=== PATIENT | female | born 1935 | race Caucasian/White ===

== ENCOUNTER 2017-05-24 22:12 | Emergency (ER) | payer OTHER ==
[~2017-05-24] VITALS: Ht 160 cm; Wt 58.0 kg
[~2017-05-24 22:12] MED LIST: CYCL1PAK PO; DIPH1TAB36 PO; OXYC1SOL5 PO; Z.0.WALKERFRONT
[2017-05-24 22:15] VITALS: BP 156/101; PULSE 98; RESP 16; TEMP 98.1; O2SAT 98
[2017-05-24 22:41] VITALS: BP 119/75; PULSE 98; RESP 18; O2SAT 97
[2017-05-24] MEDS ORDERED: SODIUM CHLORIDE 0.9% FLUSH 10 ML FLUSH IVF PRN (23:00)
[2017-05-24] MEDS ORDERED: LORazepam 2 MG/ML VIAL IV PUSH ONE (23:00)
[2017-05-24 23:10] LABS: AUTOMATED NEUTROPHIL # 4.1 TH/MM3 (1.8-7.7); BASOPHIL # 0.1 TH/MM3 (0-0.2); BASOPHIL % 0.7 % (0.0-2.0); EOSINOPHIL # 0.1 TH/MM3 (0-0.4); EOSINOPHIL % 1.2 % (0.0-4.0); HEMATOCRIT 38.2 % (35.0-46.0); HEMO FLAGS DIFF FINAL; LYMPH % 38.2 % (9.0-44.0); LYMPHOCYTE # 3.1 TH/MM3 (1.0-4.8); MEAN CELL VOLUME 87.7 FL (80.0-100.0); MEAN CORPUSCULAR HEMOGLOBIN 29.3 PG (27.0-34.0); MEAN CORPUSCULAR HGB CONC 33.4 % (32.0-36.0); MONO % 9.9 % (0.0-8.0); PLATELET COUNT 322 TH/MM3 (150-450); RED BLOOD COUNT 4.35 MIL/MM3 (4.00-5.30); RED CELL DISTRIBUTION WIDTH 13.4 % (11.6-17.2); WHITE BLOOD COUNT 8.2 TH/MM3 (4.0-11.0)
[2017-05-24 23:23] LABS: ANION GAP 8 MEQ/L (5-15); AST (GOT) 20 U/L (15-37); BICARBONATE 22.4 MEQ/L (21.0-32.0); BLOOD UREA NITROGEN 16 MG/DL (7-18); CHLORIDE 103 MEQ/L (98-107); GLOMERULAR FILTRATION RATE 80 ML/MIN (>89); POTASSIUM 3.4 MEQ/L (3.5-5.1); SODIUM (NA) 133 MEQ/L (136-145)
[2017-05-24 23:24] LABS: ALT (GPT) 15 U/L (10-53)
[2017-05-24 23:27] LABS: ALKALINE PHOSPHATASE 62 U/L (45-117); TOTAL BILIRUBIN ADULT 0.2 MG/DL (0.2-1.0)
[2017-05-24 23:37] LABS: CREATINE KINASE 48 U/L (26-192)
[2017-05-24 23:42] VITALS: RESP 18; O2SAT 97
--- NOTE | 2017-05-25 00:07 | RADRPT ---
EXAM DATE/TIME: 05/24/2017 23:25 [facility] COMPARISON: CT BRAIN W/O CONTRAST, July 05, 2016, 22:58. INDICATIONS : Altered mental status. RADIATION DOSE: 52.13 CTDIvol (mGy) MEDICAL HISTORY : Cardiovascular disease. Hypertension. Hernia, hiatal. SURGICAL HISTORY : Appendectomy. Hysterectomy.Back surgery. ENCOUNTER: Initial ACUITY: 1 day PAIN SCALE: 0/10 LOCATION: cranial TECHNIQUE: Multiple contiguous axial images were obtained of the head. Using automated exposure control and adj ustment of the mA and/or kV according to patient size, radiation dose was kept as low as reasonably a chievable to obtain optimal diagnostic quality images. DICOM format image data is available electro nically for review and comparison. FINDINGS: CEREBRUM: The ventricles are normal for age. Stable lacunar infarct right basal ganglia. No evidence of midlin e shift, mass lesion, hemorrhage or acute infarction. No extra-axial fluid collections are seen. POSTERIOR FOSSA: The cerebellum and brainstem are intact. The 4th ventricle is midline. The cerebellopontine angle i s unremarkable. EXTRACRANIAL: The visualized portion of the orbits is intact. SKULL: The calvaria is intact. No evidence of skull fracture. CONCLUSION: 1. No acute findings. Stable lacunar infarct right basal ganglia. Chronic white matter ischemic leiva es. Jr Pop MD on May 25, 2017 at 0:03 Board Certified Radiologist. This report was verified electronically.
[2017-05-25] MEDS ORDERED: LORA-392 PO (01:20)
--- NOTE | 2017-05-25 01:21 | PD ---
HPI Chief Complaint: Medical Clearance Time Seen by Provider: 22:35 Travel History International Travel<30 days: No Contact w/Intl Traveler<30days: No Traveled to known affect area: No History of Present Illness HPI Patient is an 81-year-old female who comes in complaining of spasms. She says this started about an hour ago. Per family, this happened about 10 years ago and she saw neurology and nothing was found to be wrong. They told her it was likely related to the surgery she's had in her neck and her muscles. She reports no pain. She did take Lyrica mistakenly this afternoon because of his dark and she did not see what she was taking. She does have a frontal headache , but this is a chronic issue for her. She has not had fever or chills. She denies any head trauma. She denies chest pain or shortness of breath. 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) Heart Rhythm Problems: No Cancer: No Cardiovascular Problems: Yes High Cholesterol: Yes Chemotherapy: No Cerebrovascular Accident: Yes Diabetes: No Diminished Hearing: Yes ([place]) Gastrointestinal Disorders: Yes Genitourinary: No Hiatal Hernia: Yes Hypertension: Yes Immune Disorder: No Musculoskeletal: Yes Neurologic: Yes (H/A JAWS AND ANTEROIR HEAD ALL TIME) Psychiatric: No Reproductive: Yes Respiratory: No Immunizations Current: Yes Migraines: Yes Radiation Therapy: No Thyroid Disease: Yes (HYPO) Tetanus Vaccination: < 5 Years Influenza Vaccination: Yes PNEUMOCCOCAL Vaccine (Year): 1 ?: Not Menopausal: Yes Past Surgical History Abdominal Surgery: No Appendectomy: Yes Cardiac Surgery: No Ear Surgery: No Endocrine Surgery: No Eye Surgery: Yes (CATARACTS REMOVED) Genitourinary Surgery: No Gynecologic Surgery: Yes (HYSTERECTOMY AGE 34) Hysterectomy: Yes Neurologic Surgery: Yes Oral Surgery: Yes (TEETH PULLED 2 YRS AGO) Thoracic Surgery: No Tonsillectomy: Yes Other Surgery: Yes Social History Alcohol Use: No Tobacco Use: No Substance Use: No Allergies-Medications (Allergen,Severity, Reaction): Coded Allergies: codeine (Unverified Adverse Reaction, Severe, Nausea/Vomiting, 05/24/17) "stomach problems" Reported Meds & Prescriptions Reported Meds & Active Scripts Active No Active Prescriptions or Reported Medications Review of Systems Except as stated in HPI: all other systems reviewed are Neg General / Constitutional: No: Fever, Chills Eyes: No: Blurred Vision HENT: Positive: Headaches Cardiovascular: No: Chest Pain or Discomfort Respiratory: No: Shortness of Breath Gastrointestinal: No: Nausea, Vomiting Musculoskeletal: No: Myalgias, Edema, Pain Skin: No Rash, No Change in Pigmentation Neurologic: No: Weakness, Dizziness Physical Exam Narrative GENERAL: Awake and alert, in no acute distress. SKIN: Focused skin assessment warm/dry. HEAD: Atraumatic. Normocephalic. EYES: Pupils equal and round. No scleral icterus. ENT: Mucous membranes pink and moist. NECK: Trachea midline. No JVD. CARDIOVASCULAR: Regular rate and rhythm. No murmur appreciated. RESPIRATORY: No accessory muscle use. Clear to auscultation. Breath sounds equal bilaterally. GASTROINTESTINAL: Abdomen soft, non-tender, nondistended. MUSCULOSKELETAL: No obvious deformities. No clubbing. No cyanosis. No edema. NEUROLOGICAL: Awake and alert. No obvious cranial nerve deficits. Motor grossly within normal limits. Normal speech. PSYCHIATRIC: Appropriate mood and affect; insight and judgment normal. Data Data Last Documented VS Vital Signs Date Time Temp Pulse Resp B/P (MAP) Pulse Ox O2 Delivery O2 Flow Rate FiO2 05/24/17 23:42 18 97 Room Air 05/24/17 22:41 98 05/24/17 22:15 98.1 Orders Orders Complete Blood Count With Diff (05/24/17 22:48) Electrocardiogram (05/24/17 ) Ct Brain W/O Iv Contrast(Rout) (05/24/17 ) Blood Glucose (05/24/17 22:48) Ecg Monitoring (05/24/17 22:48) Iv Access Insert/Monitor (05/24/17 22:48) Oximetry (05/24/17 22:48) Comprehensive Metabolic Panel (05/24/17 22:48) Sodium Chloride 0.9% Flush (Ns Flush) (05/24/17 23:00) Ua Includes Microscopic (05/24/17 22:48) Creatine Kinase (Cpk) (05/24/17 22:48) Lorazepam Inj (Ativan Inj) (05/24/17 23:00) Labs Laboratory Tests Test 05/24/17 22:57 White Blood Count 8.2 TH/MM3 Red Blood Count 4.35 MIL/MM3 Hemoglobin 12.8 GM/DL Hematocrit 38.2 % Mean Corpuscular Volume 87.7 FL Mean Corpuscular Hemoglobin 29.3 PG Mean Corpuscular Hemoglobin Concent 33.4 % Red Cell Distribution Width 13.4 % Platelet Count 322 TH/MM3 Mean Platelet Volume 7.4 FL Neutrophils (%) (Auto) 50.0 % Lymphocytes (%) (Auto) 38.2 % Monocytes (%) (Auto) 9.9 % Eosinophils (%) (Auto) 1.2 % Basophils (%) (Auto) 0.7 % Neutrophils # (Auto) 4.1 TH/MM3 Lymphocytes # (Auto) 3.1 TH/MM3 Monocytes # (Auto) 0.8 TH/MM3 Eosinophils # (Auto) 0.1 TH/MM3 Basophils # (Auto) 0.1 TH/MM3 CBC Comment DIFF FINAL Differential Comment Blood Urea Nitrogen 16 MG/DL Creatinine 0.70 MG/DL Random Glucose 97 MG/DL Total Protein 6.5 GM/DL Albumin 3.4 GM/DL Calcium Level 8.4 MG/DL Alkaline Phosphatase 62 U/L Aspartate Amino Transf (AST/SGOT) 20 U/L Alanine Aminotransferase (ALT/SGPT) 15 U/L Total Bilirubin 0.2 MG/DL Sodium Level 133 MEQ/L Potassium Level 3.4 MEQ/L Chloride Level 103 MEQ/L Carbon Dioxide Level 22.4 MEQ/L Anion Gap 8 MEQ/L Estimat Glomerular Filtration Rate 80 ML/MIN Total Creatine Kinase 48 U/L MDM Medical Decision Making Medical Screen Exam Complete: Yes Emergency Medical Condition: Yes Medical Record Reviewed: Yes Interpretation(s) ECG shows atrial pacemaker, left anterior fascicular block. Differential Diagnosis Electrolyte abnormality versus seizure versus muscle spasm Narrative Course Patient is an 81-year-old female who comes in complaining of spasms. Exam shows no neurologic abnormality. IV established, labs sent. Labs show no acute abnormalities. CT head performed shows no acute abnormalities. Patient given a small dose of Ativan with resolution of her symptoms. She'll be discharged with a prescription for 3 pills of Ativan. She is advised follow-up with neurology and her doctor. Advised to return to the ED as needed for any worsening symptoms. She and her family are comfortable with this plan. Diagnosis Primary Impression: Spasm Patient Instructions: General Instructions, Muscle Spasm (ED) Additional Instructions: Follow-up with your primary care doctor. Follow up with neurology. He Taking Ativan as it may make you drowsy and these pills are very addictive. Return to the ED as needed for any worsening symptoms. Scripts Lorazepam (Ativan) 0.5 Mg Tab 0.5 MG PO DAILY Y for ANXIETY AND/OR AGITATION, #3 TAB 0 Refills Prov: Bethany De Luna MD 05/25/17 Disposition: 01 DISCHARGE HOME Condition: Stable Bethany De Luna MD May 25, 2017 01:20
--- NOTE | 2017-05-25 21:26 | EKG ---
Date Performed: 05/24/2017 Time Performed: 23:48:52 PTAGE: 81 years EKG: Sinus rhythm INCOMPLETE RIGHT BUNDLE BRANCH BLOCK LEFT ANTERIOR FASCICULAR BLOCK MINIMAL VOLTAGE CRITERIA FOR LVH , CONSIDER NORMAL VARIANT SEPTAL MYOCARDIAL INFARCTION ABNORMAL ECG PREVIOUS TRACING : 04/29/2014 01.47 Compared to prior tracing no significant change DOCTOR: Jarrett Duran Interpretating Date/Time 05/25/2017 21:25:26
== END 2017-05-25 01:43 | disposition home or self-care (01) ==
LOC: NEPE 22:12
DX: R25.2 Cramp and spasm (principal); I45.2 Bifascicular block; R94.31 Abnormal electrocardiogram [ECG] [EKG]; R51 Headache; M19.90 Unspecified osteoarthritis, unspecified site; I10 Essential (primary) hypertension; E03.9 Hypothyroidism, unspecified; E78.00 Pure hypercholesterolemia, unspecified; Z86.73 Personal history of transient ischemic attack (TIA), and cerebral infarction without residual deficits
CPT/HCPCS: 70450; 80053; 82550; 85025; 93005; 96374; 99285; J2060

== ENCOUNTER 2018-01-18 22:19 | Inpatient (IN) | payer OTHER, MEDICARE ==
[~2018-01-18] VITALS: Ht 160 cm; Wt 63.0 kg
[~2018-01-18 22:19] MED LIST changes: -CYCL1PAK PO; -DIPH1TAB36 PO; +LORA-392 PO; -OXYC1SOL5 PO; -Z.0.WALKERFRONT
[2018-01-18 22:27] VITALS: BP 182/90; RESP 18; TEMP 98.1
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
[2018-01-18 23:12] LABS: BASOPHIL # 0.1 TH/MM3 (0-0.2); BASOPHIL % 0.7 % (0.0-2.0); EOSINOPHIL # 0.1 TH/MM3 (0-0.4); EOSINOPHIL % 0.6 % (0.0-4.0); HEMATOCRIT 38.5 % (35.0-46.0); HEMOGLOBIN 13.3 GM/DL (11.6-15.3); LYMPH % 20.4 % (9.0-44.0); LYMPHOCYTE # 2.1 TH/MM3 (1.0-4.8); MEAN CELL VOLUME 85.3 FL (80.0-100.0); MEAN CORPUSCULAR HEMOGLOBIN 29.5 PG (27.0-34.0); MEAN CORPUSCULAR HGB CONC 34.6 % (32.0-36.0); MEAN PLATELET VOLUME 7.5 FL (7.0-11.0); MONO % 9.2 % (0.0-8.0); MONOCYTE # 0.9 TH/MM3 (0-0.9); NEUT % 69.1 % (16.0-70.0); PLATELET COUNT 295 TH/MM3 (150-450); RED BLOOD COUNT 4.51 MIL/MM3 (4.00-5.30); RED CELL DISTRIBUTION WIDTH 13.5 % (11.6-17.2); WHITE BLOOD COUNT 10.1 TH/MM3 (4.0-11.0)
[2018-01-18 23:20] LABS: BILIRUBIN, URINE NEG (NEG); BLOOD, URINE NEG (NEG); GLUCOSE,URINE NEG (NEG); HYALINE CAST, URINE 3 /lpf (RARE); KETONE, URINE NEG (NEG); MUCUS URINE FEW /lpf (OCC); NITRITE,URINE NEG (NEG); PH, URINE 6.5 (5.0-8.5); RENAL EPITHELIAL CELLS <1 /hpf; SQUAMOUS EPITHELIAL CELL URINE 2 /hpf (0-5); TRANSITIONAL EPI CELLS, URINE <1 /hpf; URINE COLOR YELLOW (YELLW/STRAW); URINE LEUKOCYTE ESTERASE NEG (NEG)
--- NOTE | 2018-01-18 23:26 | RADRPT ---
EXAM DATE/TIME: 01/18/2018 23:02 [facility] COMPARISON: CT BRAIN W/O CONTRAST, May 24, 2017, 23:25. INDICATIONS : Altered mental status. RADIATION DOSE: 56.35 CTDIvol (mGy) MEDICAL HISTORY : Hypertension. Cerebrovascular disease. SURGICAL HISTORY : None. ENCOUNTER: Initial ACUITY: 1 day PAIN SCALE: 0/10 LOCATION: cranial TECHNIQUE: Multiple contiguous axial images were obtained of the head. Using automated exposure control and adj ustment of the mA and/or kV according to patient size, radiation dose was kept as low as reasonably a chievable to obtain optimal diagnostic quality images. DICOM format image data is available electro nically for review and comparison. FINDINGS: CEREBRUM: The ventricles are normal for age. No evidence of midline shift, mass lesion, hemorrhage or acute in farction. No extra-axial fluid collections are seen. Atrophy and chronic white matter changes are ag ain noted. There is an old right basal ganglia lacunar infarct again seen. POSTERIOR FOSSA: The cerebellum and brainstem are intact. The 4th ventricle is midline. The cerebellopontine angle i s unremarkable. EXTRACRANIAL: The visualized portion of the orbits is intact. SKULL: The calvaria is intact. No evidence of skull fracture. CONCLUSION: No acute intracranial abnormality. Atrophy, chronic white matter changes and old right basal ganglia lacunar infarct again seen. Reji Diego MD on January 18, 2018 at 23:23 Board Certified Radiologist. This report was verified electronically.
[2018-01-18 23:28] LABS: ALBUMIN 3.5 GM/DL (3.4-5.0); ALT (GPT) 20 U/L (10-53); AST (GOT) 17 U/L (15-37); BICARBONATE 26.4 MEQ/L (21.0-32.0); BLOOD UREA NITROGEN 17 MG/DL (7-18); CALCIUM 8.6 MG/DL (8.5-10.1); CHLORIDE 101 MEQ/L (98-107); CREATININE 0.69 MG/DL (0.50-1.00); GLOMERULAR FILTRATION RATE 81 ML/MIN (>89); GLUCOSE,RANDOM 96 MG/DL (74-106); SODIUM (NA) 136 MEQ/L (136-145)
[2018-01-18 23:38] LABS: ALKALINE PHOSPHATASE 74 U/L (45-117); TOTAL BILIRUBIN ADULT 0.2 MG/DL (0.2-1.0); TOTAL PROTEIN 7.1 GM/DL (6.4-8.2)
[2018-01-18 23:43] LABS: ACETAMINOPHEN LESS THAN 2.0 MCG/ML (10.0-30.0)
[2018-01-19 10:00] VITALS: BP 139/67; PULSE 67; RESP 19; O2SAT 96
[2018-01-19] MEDS ORDERED: ALUMINUM/MAGNESIUM/SIMETH 30 ML CUP PO PRN (11:00)
[2018-01-19] MEDS ORDERED: LORazepam 2 MG/ML VIAL IM PRN ×2 (11:00)
[2018-01-19] MEDS ORDERED: LORazepam 1 MG TAB PO PRN (11:00)
[2018-01-19] MEDS ORDERED: NICOTINE 21 MG/24 HR PATCH T-DERMAL SCH (11:00)
[2018-01-19] MEDS ORDERED: MAGNESIUM HYDROXIDE SUSP 30 ML CUP PO PRN (11:00)
[2018-01-19] MEDS ORDERED: LORazepam 0.5 MG TAB PO PRN (11:00)
[2018-01-19 12:47] VITALS: BP 140/90; PULSE 75; RESP 19; O2SAT 95
[2018-01-19 13:00] VITALS: BP 129/70; PULSE 71; RESP 17; TEMP 98.4; O2SAT 95
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
[2018-01-19 18:54] VITALS: BP 135/63; PULSE 76; RESP 18; TEMP 98.2; O2SAT 95
[2018-01-19] MEDS: ACETAMINOPHEN 325 MG TAB PO PRN (22:27)
[2018-01-20] MEDS: ACETAMINOPHEN 325 MG TAB PO PRN ×2 (02:56→11:41)
[2018-01-20 06:00] VITALS: BP 127/60; PULSE 61; RESP 16; TEMP 97.8; O2SAT 96
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
[2018-01-20] MEDS ORDERED: ONDANSETRON ODT 4 MG TAB PO PRN (13:00)
[2018-01-20 14:11] LABS: BICARBONATE 25.1 MEQ/L (21.0-32.0); BLOOD UREA NITROGEN 12 MG/DL (7-18); CALCIUM 8.4 MG/DL (8.5-10.1); CHLORIDE 99 MEQ/L (98-107); CHOLESTEROL 243 MG/DL (120-200); GLOMERULAR FILTRATION RATE 95 ML/MIN (>89); GLUCOSE,RANDOM 106 MG/DL (74-106); SODIUM (NA) 133 MEQ/L (136-145)
[2018-01-20 14:13] LABS: CHOLESTEROL/ HDL RATIO 2.69 RATIO; HDL CHOLESTEROL 90.3 MG/DL (40.0-60.0); LDL CHOLESTEROL 135 MG/DL (0-99); TRIGLYCERIDES 88 MG/DL (42-150)
[2018-01-20 14:21] LABS: FREE T3 1.93 PG/ML (2.18-3.98); FREE T4 0.95 NG/DL (0.76-1.46)
[2018-01-20] MEDS ORDERED: cloNIDine HCL 0.1 MG TAB PO PRN (16:30)
--- NOTE | 2018-01-20 16:36 | PD.CONS ---
HPI Service [facility] Hospitalists Consult Requested By Psychiatric team Reason for Consult Medical management Primary Care Physician Unknown Diagnoses: History of Present Illness This is a 82-year-old female with a past medical history significant for hypertension, dyslipidemia, chronic headaches, hard of hearing, osteoarthritis, GERD, hypothyroidism and dementia who was admitted to inpatient psychiatry under Guadarrama act due to her threatening herself and others. Hospitalist services have been consulted for medical management. Patient seen and examined. Patient complains of frontal headache and slight nausea today. She does admit that she has frequent headaches. She denies any complaints of neck pain. She denies any complaints of vision changes or dizziness. She denies any fever chills. She denies any chest pain or shortness of breath. She denies any vomiting or abdominal pain. She states she is urinating without any difficulties and denies any diarrhea or constipation. Discussed with nursing staff, no acute issues noted. Review of Systems Except as stated in HPI: all other systems reviewed are Neg Past Family Social History Allergies: Coded Allergies: codeine (Unverified Adverse Reaction, Severe, Nausea/Vomiting, 05/24/17) "stomach problems" Past Medical History Hypertension Dyslipidemia Hx of CVA Hypothyroidism Chronic migraine headaches GERD Hard of hearing Dementia Osteoarthritis History of C6 left pedicle fracture and endplate fracture 2016 Past Surgical History Appendectomy Cataract surgery Hysterectomy Tonsillectomy History of C4 6 anterior cervical fusion Reported Medications Ativan (Lorazepam) 0.5 Mg Tab 0.5 Mg PO DAILY PRN Active Ordered Medications Current Medications Medications (Trade) Dose Ordered Sig/Tim Route Start Time Stop Time Status Last Admin (Ativan) 1 mg Q6H PRN PO 01/19/18 11:00 (Ativan Inj) 1 mg Q6H PRN IM 01/19/18 11:00 (Ativan) 0.5 mg Q12H PRN PO 01/19/18 11:00 (Ativan Inj) 0.5 mg Q12H PRN IM 01/19/18 11:00 (Tylenol) 650 mg Q4H PRN PO 01/19/18 11:00 01/20/18 11:41 (Milk Of Magnesia Liq) 30 ml DAILY PRN PO 01/19/18 11:00 (Mag-Al Plus Susp Liq) 30 ml Q6H PRN PO 01/19/18 11:00 (Zofran Odt) 4 mg Q6H PRN PO 01/20/18 13:00 Family History Reviewed with patient, she is unsure of her family's medical history Social History She denies any tobacco use, alcohol consumption or illicit drug use Physical Exam Vital Signs Vital Signs Date Time Temp Pulse Resp B/P (MAP) Pulse Ox O2 Delivery O2 Flow Rate FiO2 01/20/18 06:00 97.8 61 16 127/60 (82) 96 01/19/18 18:54 98.2 76 18 135/63 (87) 95 Physical Exam GENERAL: This is a well-nourished, well-developed elderly female patient, in no apparent distress. Awake and alert. SKIN: No rashes, ecchymoses or lesions. Cool and dry. HEAD: Atraumatic. Normocephalic. No temporal or scalp tenderness. EYES: Pupils equal round and reactive. Extraocular motions intact. No scleral icterus. No injection or drainage. ENT: Nose without bleeding or purulent drainage. Throat without erythema, tonsillar hypertrophy or exudate. Uvula midline. Airway patent. NECK: Trachea midline. No JVD . Supple, nontender, no meningeal signs. CARDIOVASCULAR: Regular rate and rhythm without murmurs, gallops, or rubs. RESPIRATORY: Clear to auscultation. Breath sounds equal bilaterally. No wheezes , rales, or rhonchi. GASTROINTESTINAL: Abdomen soft, non-tender, nondistended. No hepato-splenomegaly , or palpable masses. No guarding. MUSCULOSKELETAL: Extremities without clubbing, cyanosis, or edema. No joint tenderness, effusion, or edema noted. No calf tenderness. Negative Homans sign bilaterally. NEUROLOGICAL: Awake and alert. Oriented to self and place, disoriented to time. Cranial nerves II through XII grossly intact. Motor and sensory grossly within normal limits. No focal neurologic findings appreciated. Normal speech. Laboratory Laboratory Tests Test 01/20/18 13:25 01/20/18 13:39 Free Thyroxine 0.95 Free Triiodothyronine (T3) pg/dL 1.93 Blood Urea Nitrogen 12 Creatinine 0.60 Random Glucose 106 Calcium Level 8.4 Sodium Level 133 Potassium Level 3.9 Chloride Level 99 Carbon Dioxide Level 25.1 Anion Gap 9 Estimat Glomerular Filtration Rate 95 Triglycerides Level 88 Cholesterol Level 243 LDL Cholesterol 135 HDL Cholesterol 90.3 Cholesterol/HDL Ratio 2.69 Result Diagram: 01/18/18 2300 01/20/18 1339 Imaging Last Impressions Head CT 01/18/18 0000 Signed Impressions: Service Date/Time: Thursday, January 18, 2018 23:02 - CONCLUSION: No acute intracranial abnormality. Atrophy, chronic white matter changes and old right basal ganglia lacunar infarct again seen. Reji Diego MD Assessment and Plan Assessment and Plan 82-year-old female with a past medical history significant for hypertension, dyslipidemia, chronic headaches, hard of hearing, osteoarthritis, GERD, hypothyroidism and dementia who was admitted to inpatient psychiatry under Guadarrama act due to her threatening herself and others. Hospitalist services have been consulted for medical management. Dementia with behavioral disturbance -Management per psychiatric team Chronic headaches/migraines CT head shows no acute intracranial abnormality, chronic white matter changes and old right basal ganglia lacunar infarct -Trial of Fioricet Hyponatremia, mild Na 133 -encourage fluid intake -monitor Nausea, likely secondary to hx of chronic headaches/migraines LFTs WNL No abdominal pain on exam -Zofran prn -monitor Poor po intake, suspect secondary to nausea -consult Mill Tender Second Operator -add Ensure with meals Hypertension, well controlled at present, not on any meds -We will resume patient's blood pressure medication once medication reconciliation completed Hx of hypothyroidism TSH mildly elevated at 5.420 Normal free T4 No thyroid replacement medication list and medication reconciliation. Requested nursing staff to complete medication reconciliation will resume thyroid replacement at current home dose -Patient should follow-up with her PCP as an outpatient have TSH rechecked in 6-8 weeks Patient with other chronic medical conditions including hypertension, dyslipidemia, osteoarthritis and GERD -only medication listed in patient's med rec is Ativan. Request nursing staff to update medication reconciliation and will resume patient's home meds once completed. DVT prophylaxis -Patient is ambulatory Thank you very kindly for this consultation. We will continue to follow patient along with you. Discussed Condition With patient, nursing staff Xuan Omer January 20, 2018 16:36
[2018-01-20 17:09] LABS: HEMOGLOBIN A1C 5.5 % (4.3-6.0)
[2018-01-20 17:31] VITALS: BP 137/73; PULSE 97; RESP 16; TEMP 97; O2SAT 96
[2018-01-20] MEDS ORDERED: ACETAMIN 325 MG/BUTALBITAL 50 MG/CAFFEINE 40 MG TAB PO ONE (18:00)
[2018-01-20 19:59] LABS: BILIRUBIN, URINE NEG (NEG); BLOOD, URINE SMALL (NEG); GLUCOSE,URINE NEG (NEG); KETONE, URINE NEG (NEG); NITRITE,URINE NEG (NEG); SQUAMOUS EPITHELIAL CELL URINE 6 /hpf (0-5); URINE COLOR LIGHT-YELLOW (YELLW/STRAW); URINE LEUKOCYTE ESTERASE NEG (NEG)
[2018-01-20] MEDS: FAMOTIDINE 20 MG TAB PO SCH (20:51)
[2018-01-21 06:00] VITALS: BP 149/79; PULSE 63; RESP 16; TEMP 97.6; O2SAT 97
[2018-01-21] MEDS: FAMOTIDINE 20 MG TAB PO SCH ×2 (09:11→20:55)
[2018-01-21] MEDS ORDERED: ACETAMIN 325 MG/BUTALBITAL 50 MG/CAFFEINE 40 MG TAB PO PRN (12:30)
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
--- NOTE | 2018-01-21 16:02 | HHI.PYPN ---
Subjective Remarks Patient was seen and case discussed with nursing. Patient is hard of hearing which limits the interview. She has been under good behavior. She is eating and showering. She is alert and oriented 1. Compliant with her medications Mental Status Examination Appearance: Appropriate Consciousness: Alert Orientation: Person Motor Activity: Normal gait Speech: Unremarkable Language: Adequate Fund of Knowledge: Inadequate Attention and Concentration: Adequate Memory: Impaired Mood: Appropriate Affect: Appropriate Thought Process & Associations: Intact Thought Content: Appropriate Hallucination Type: None Delusion Type: None Suicidal Ideation: No Suicidal Plan: No Suicidal Intention: No Homicidal Ideation: No Homicidal Plan: No Homicidal Intention: No Insight: Poor Judgment: Impulsive Results Labs Test 01/20/18 18:50 Urine Color LIGHT-YELLOW Urine Turbidity CLEAR Urine pH 7.0 Urine Specific [place]man 1.008 Urine Protein NEG mg/dL Urine Glucose (UA) NEG mg/dL Urine Ketones NEG mg/dL Urine Occult Blood SMALL Urine Nitrite NEG Urine Bilirubin NEG Urine Urobilinogen LESS THAN 2.0 MG/DL Urine Leukocyte Esterase NEG Urine RBC 2 /hpf Urine WBC LESS THAN 1 /hpf Urine Squamous Epithelial Cells 6 /hpf Microscopic Urinalysis Comment CULT NOT INDICATED Vitals/IOs Vital Signs Date Time Temp Pulse Resp B/P (MAP) Pulse Ox O2 Delivery O2 Flow Rate FiO2 01/21/18 06:00 97.6 63 16 149/79 (102) 97 01/19/18 12:47 Room Air Intake and Output 01/21/18 01/21/18 01/22/18 08:00 16:00 00:00 Intake Total 240 ml 120 ml Balance 240 ml 120 ml Assessment & Plan Problem List: (1) Dementia with behavioral disturbance ICD Codes: F03.91 - Unspecified dementia with behavioral disturbance Assessment & Plan Continue current treatment plan Justification for Cont. Inpt. Patient would decompensate in a less restrictive setting Sammy Brand DO January 21, 2018 16:02
[2018-01-21 16:30] VITALS: BP 132/61; PULSE 71; RESP 16; TEMP 97.6; O2SAT 97
[2018-01-22 06:16] VITALS: BP 131/64; PULSE 93; RESP 18; TEMP 97.9; O2SAT 94
[2018-01-22] MEDS: FAMOTIDINE 20 MG TAB PO SCH ×2 (08:28→20:35)
--- NOTE | 2018-01-22 15:58 | HHI.PYPN ---
Subjective Remarks Patient was seen and case discussed with nursing. Patient is alert and oriented 2. Pleasant and cooperative with exam. Compliant with medications. Behaving well on the unit. Bright and cheerful during the interview Mental Status Examination Appearance: Appropriate Consciousness: Alert Orientation: Person, Place Motor Activity: Normal gait Speech: Unremarkable Language: Adequate Fund of Knowledge: Inadequate Attention and Concentration: Adequate Memory: Impaired Mood: Appropriate Affect: Appropriate Thought Process & Associations: Intact Thought Content: Appropriate Hallucination Type: None Delusion Type: None Suicidal Ideation: No Suicidal Plan: No Suicidal Intention: No Homicidal Ideation: No Homicidal Plan: No Homicidal Intention: No Insight: Poor Judgment: Impulsive Results Labs Test 01/22/18 06:45 Sodium Level 135 MEQ/L Vitals/IOs Vital Signs Date Time Temp Pulse Resp B/P (MAP) Pulse Ox O2 Delivery O2 Flow Rate FiO2 01/22/18 06:16 97.9 93 18 131/64 (86) 94 01/19/18 12:47 Room Air Assessment & Plan Problem List: (1) Dementia with behavioral disturbance ICD Codes: F03.91 - Unspecified dementia with behavioral disturbance Assessment & Plan Continue current treatment plan Justification for Cont. Inpt. Patient would decompensate in a less restrictive setting Sammy Brand DO January 22, 2018 15:58
[2018-01-22 18:00] VITALS: BP 149/73; PULSE 80; RESP 18; TEMP 97.9; O2SAT 100
[2018-01-23] MEDS: ACETAMINOPHEN 325 MG TAB PO PRN (05:18)
[2018-01-23 05:30] VITALS: BP 166/77; PULSE 67; RESP 15; TEMP 98; O2SAT 98
[2018-01-23] MEDS: FAMOTIDINE 20 MG TAB PO SCH (09:11)
[2018-01-23] MEDS ORDERED: FAMO20TA2 PO (11:16)
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
== END 2018-01-23 14:55 | disposition home or self-care (01) | DRG 884 ==
LOC: NEPD 22:19 → NEDA 01-19 10:56 → H4EA 01-19 12:55
PROVIDERS: ADMIT Student in an Organized Health Care Education/Training Program; ATTEND Student in an Organized Health Care Education/Training Program
DX: F03.91 Unspecified dementia, unspecified severity, with behavioral disturbance (principal); E87.1 Hypo-osmolality and hyponatremia; I10 Essential (primary) hypertension; G43.909 Migraine, unspecified, not intractable, without status migrainosus; M19.90 Unspecified osteoarthritis, unspecified site; K21.9 Gastro-esophageal reflux disease without esophagitis; H91.90 Unspecified hearing loss, unspecified ear; E78.5 Hyperlipidemia, unspecified; E03.9 Hypothyroidism, unspecified; Z86.73 Personal history of transient ischemic attack (TIA), and cerebral infarction without residual deficits; R11.0 Nausea
CPT/HCPCS: 70450; 80048; 80053; 80061; 80307; 81001; 83036; 84295; 84439; 84443; 84481; 85025

== ENCOUNTER 2018-02-20 15:45 | Emergency (ER) | payer MEDICARE, OTHER ==
[~2018-02-20] VITALS: Ht 162.6 cm; Wt 55.0 kg
[~2018-02-20 15:45] MED LIST changes: +FAMO20TA2 PO; -LORA-392 PO
[2018-02-20 16:30] VITALS: BP 114/60; PULSE 64; RESP 16; TEMP 97.8
--- NOTE | 2018-02-20 17:39 | PD ---
HPI Chief Complaint: Fall Time Seen by Provider: 17:18 Travel History International Travel<30 days: No Contact w/Intl Traveler<30days: No Traveled to known affect area: No History of Present Illness HPI 82 yo female that presents to the ED for evaluation of fall. Patient herself is not a good historian. She does have a history of dementia. Apparently per report son saw her on the floor. She did complain of feeling nauseous before this happen. Currently she denies any symptoms and wants to go home. per ED nurse report she did complain of pain to the back of the head. Denies any complains. History limited because of dementia. Per report her BP was low. 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) Anxiety: Yes Depression: Yes Heart Rhythm Problems: No Cancer: No Cardiovascular Problems: Yes High Cholesterol: Yes Chemotherapy: No Cerebrovascular Accident: Yes Diabetes: No Diminished Hearing: Yes ([place] Endocrine: Yes Gastrointestinal Disorders: Yes Genitourinary: No Hiatal Hernia: Yes Hypertension: Yes Immune Disorder: No Musculoskeletal: Yes Neurologic: Yes (H/A JAWS AND ANTEROIR HEAD ALL TIME) Psychiatric: Yes Reproductive: Yes Respiratory: No Immunizations Current: Yes Migraines: Yes Radiation Therapy: No Thyroid Disease: Yes (HYPO) PNEUMOCCOCAL Vaccine (Year): 1 Menopausal: Yes Past Surgical History Abdominal Surgery: No Appendectomy: Yes Cardiac Surgery: No Ear Surgery: No Endocrine Surgery: No Eye Surgery: Yes (CATARACT REMOVAL) Genitourinary Surgery: No Gynecologic Surgery: Yes (HYSTERECTOMY AGE 34) Hysterectomy: Yes Neurologic Surgery: Yes Oral Surgery: Yes (TEETH PULLED 2 YRS AGO) Thoracic Surgery: No Tonsillectomy: Yes Other Surgery: Yes Social History Alcohol Use: No Tobacco Use: No Substance Use: No Allergies-Medications (Allergen,Severity, Reaction): Coded Allergies: codeine (Unverified Adverse Reaction, Severe, Nausea/Vomiting, 05/24/17) "stomach problems" Reported Meds & Prescriptions Reported Meds & Active Scripts Active Famotidine 20 Mg Tab 20 Mg PO BID 30 Days Review of Systems ROS Limitations: Poor Historian Except as stated in HPI: all other systems reviewed are Neg Physical Exam Exam Limitations: Poor Historian Narrative GENERAL: SKIN: Warm and dry. HEAD: Atraumatic. Normocephalic. EYES: Pupils equal and round. No scleral icterus. No injection or drainage. ENT: No nasal bleeding or discharge. Mucous membranes pink and moist. Tongue is midline. No uvula deviation. NECK: Trachea midline. No JVD. CARDIOVASCULAR: Regular rate and rhythm. No S3, S4. RESPIRATORY: No accessory muscle use. Clear to auscultation. Breath sounds equal bilaterally. GASTROINTESTINAL: Abdomen soft, non-tender, nondistended. Hepatic and splenic margins not palpable. MUSCULOSKELETAL: Extremities without clubbing, cyanosis, or edema. No obvious deformities. Full ROM of the upper and lower extremities bilaterally. 2+ pulses. NEUROLOGICAL: Awake and alert. No obvious cranial nerve deficits. Motor grossly within normal limits. Five out of 5 muscle strength in the arms and legs. Normal speech. PSYCHIATRIC: Appropriate mood and affect; insight and judgment normal. Data Data Last Documented VS Vital Signs Date Time Temp Pulse Resp B/P (MAP) Pulse Ox O2 Delivery O2 Flow Rate FiO2 02/20/18 16:30 97.8 64 16 114/60 (78) Orders Orders Electrocardiogram (02/20/18 17:27) Complete Blood Count With Diff (02/20/18 17:27) Comprehensive Metabolic Panel (02/20/18 17:27) Ckmb (Isoenzyme) Profile (02/20/18 17:27) Troponin I (02/20/18 17:27) Urinalysis - C+S If Indicated (02/20/18 17:27) Magnesium (Mg) (02/20/18 17:27) Thyroid Stimulating Hormone (02/20/18 17:27) Chest, Single Ap (02/20/18 17:27) Ct Brain W/O Iv Contrast(Rout) (02/20/18 17:27) Iv Access Insert/Monitor (02/20/18 17:27) Ecg Monitoring (02/20/18 17:27) Oximetry (02/20/18 17:27) Orthostatic Vital Signs (02/20/18 17:27) MDM Medical Decision Making Medical Screen Exam Complete: Yes Emergency Medical Condition: Yes Medical Record Reviewed: Yes Differential Diagnosis fall vs dementia vs head injury vs AMS vs fracture vs UTI vs abdominal pain vs syncope Narrative Course 82 yo female here for evaluation of fall. Properly examined and found to have signs of possible fall. Hard to obtain history secondary to dementia. patient not reliable historian. Will do imaging and labs. Patient will be signed out to incoming provider pending disposition and plan. Jer Feliz Feb 20, 2018 17:39
--- NOTE | 2018-02-20 17:59 | RADRPT ---
EXAM DATE: 02/20/2018 5:56 PM EDT AGE/SEX: 82 years / Female INDICATIONS: Syncope. CLINICAL DATA: This is the patient's initial encounter. Patient reports that signs and symptoms have been present for 1 day and indicates a pain score of Nonresponsive. MEDICAL/SURGICAL HISTORY: Non-responsive. Non-responsive. COMPARISON: No prior exams available for comparison. FINDINGS: The lungs are clear without infiltrate, nodule, or mass. There is no appreciable pleural effusion for technique. Heart and mediastinum are unremarkable. CONCLUSION: No acute cardiopulmonary disease. Electronically signed by: Rafia Vides MD 02/20/2018 5:58 PM EDT
--- NOTE | 2018-02-20 18:03 | RADRPT ---
EXAM DATE: 02/20/2018 5:55 PM EDT AGE/SEX: 82 years / Female INDICATIONS: Altered mental status. CLINICAL DATA: This is the patient's initial encounter. Patient reports that signs and symptoms have been present for 1 day and indicates a pain score of 0/10. MEDICAL/SURGICAL HISTORY: Cerebrovascular disease. Hypertension. Dementia Hysterectomy. RADIATION DOSE: 56.35 CTDI (mGy) COMPARISON: [facility] [place], CT BRAIN W/O CONTRAST, 01/18/2018. . TECHNIQUE: CT of the head without contrast. Using automated exposure control and adjustment of the mA and/or kV according to patient size, radiation dose was kept as low as reasonably achievable to ob tain optimal diagnostic quality images. FINDINGS: There is no evidence for intracranial hemorrhage, mass effect, mass lesions, or edema. The visualize d bony structures appear intact. Moderate degree of brain atrophy is seen. Moderate periventricular white matter changes are seen nonspecific mostly consistent with chronic small vessel ischemic change s. There are no signs of acute infarction for technique. There is also either prominent Virchow-Eagle n space or old lacunar infarction on the right in the anterior mesial temporal lobe. CONCLUSION: Chronic small vessel ischemic and atrophic changes. Electronically signed by: Rafia Vides MD 02/20/2018 6:01 PM EDT
[2018-02-20 18:42] VITALS: BP 129/65; PULSE 65; RESP 18; O2SAT 98
[2018-02-20 18:48] LABS: ALBUMIN 3.1 GM/DL (3.4-5.0); ALT (GPT) 27 U/L (10-53); AST (GOT) 21 U/L (15-37); BICARBONATE 22.1 MEQ/L (21.0-32.0); BLOOD UREA NITROGEN 10 MG/DL (7-18); CALCIUM 8.1 MG/DL (8.5-10.1); CHLORIDE 106 MEQ/L (98-107); CREATININE 0.72 MG/DL (0.50-1.00); GLOMERULAR FILTRATION RATE 77 ML/MIN (>89); GLUCOSE,RANDOM 96 MG/DL (74-106); SODIUM (NA) 139 MEQ/L (136-145)
--- NOTE | 2018-02-20 18:53 | RADRPT ---
EXAM DATE: 02/20/2018 6:01 PM EDT AGE/SEX: 82 years / Female INDICATIONS: Altered mental status. CLINICAL DATA: This is the patient's initial encounter. Patient reports that signs and symptoms have been present for 1 day and indicates a pain score of 0/10. MEDICAL/SURGICAL HISTORY: Cerebrovascular disease. Hypertension. Dementia Hysterectomy. Fusi on, cervical. RADIATION DOSE: 19.78 CTDI (mGy) COMPARISON: [facility], CT CERVICAL SPINE W/O CONTRAST, 07/05/2016. . TECHNIQUE: Contiguous axial images were obtained using helical multirow detector technique. The vol umetric data was post-processed with multiplanar reconstruction in oblique axial, sagittal, and coron al planes. Using automated exposure control and adjustment of the mA and/or kV according to patient s ize, radiation dose was kept as low as reasonably achievable to obtain optimal diagnostic quality lori ges. FINDINGS: No significant subluxation or soft tissue swelling is seen. There is solid fusion at C4-5 and C5-6 levels. Significant facet arthrosis is seen in multiple levels bilaterally. Previously seen fracture involving the left C6 pars interarticularis has healed. C2-C3: No appreciable compromise to the thecal sac, exiting nerve roots are seen. The neural foramin a are patent bilaterally. No appreciable thecal sac stenosis is seen. C3-C4: Moderate degenerative changes are present in the disc space and facets. There is moderate chloe ral foraminal compromise on the left. No appreciable thecal sac stenosis is seen. C4-C5: No appreciable compromise to the thecal sac, exiting nerve roots are seen. The neural foramin a are patent bilaterally. No appreciable thecal sac stenosis is seen. C5-C6: No appreciable compromise to the thecal sac, exiting nerve roots are seen. The neural foramin a are patent bilaterally. No appreciable thecal sac stenosis is seen. C6-C7: No appreciable compromise to the thecal sac, exiting nerve roots are seen. The neural foramin a are patent bilaterally. No appreciable thecal sac stenosis is seen. C7-T1: No appreciable compromise to the thecal sac, exiting nerve roots are seen. The neural foramin a are patent bilaterally. No appreciable thecal sac stenosis is seen. CONCLUSION: Moderate neural foraminal compromise left C3-4. Electronically signed by: Rafia Vides MD 02/20/2018 6:52 PM EDT
[2018-02-20 18:55] VITALS: BP_SYST 100; BP_SYST 123; BP_SYST 129; BP_DIAS 59; BP_DIAS 63; BP_DIAS 69
[2018-02-20 18:58] LABS: ALKALINE PHOSPHATASE 67 U/L (45-117); TOTAL BILIRUBIN ADULT 0.2 MG/DL (0.2-1.0); TOTAL PROTEIN 6.2 GM/DL (6.4-8.2); TROPONIN I LESS THAN 0.02 NG/ML (0.02-0.05)
[2018-02-20 19:06] LABS: BILIRUBIN, URINE NEG (NEG); BLOOD, URINE NEG (NEG); GLUCOSE,URINE NEG (NEG); KETONE, URINE NEG (NEG); MUCUS URINE FEW /lpf (OCC); NITRITE,URINE NEG (NEG); SQUAMOUS EPITHELIAL CELL URINE <1 /hpf (0-5); URINE COLOR YELLOW (YELLW/STRAW); URINE LEUKOCYTE ESTERASE NEG (NEG)
--- NOTE | 2018-02-20 19:59 | PD ---
Physical Exam Narrative General: The patient is a well-developed well-nourished female in no acute distress. Upon my arrival to the room the patient is up walking around and appears steady on her feet. Head and Neck exam: Head is normocephalic atraumatic. No palpable scalp hematoma, erythema or ecchymosis noted. No step-off or crepitus. Eyes: EOMI, pupils are equal round and reactive to light. Nose: Midline septum with pink mucous membranes Mouth: Dentition unremarkable. Moist mucus membranes. Posterior oropharynx is not erythematous. No tonsillar hypertrophy. Uvula midline. Airway patent. Neck: No palpable lymphadenopathy. No nuchal rigidity. No thyromegaly. No spinous process tenderness to palpation. No step-off or crepitus. No erythema or ecchymosis. Cardiovascular: Regular rate and rhythm without murmurs, gallops, or rubs. Lungs: Clear to auscultation bilaterally. No wheezes, rhonchi, or rales. Abdomen: Soft, without tenderness to palpation in all 4 quadrants of the abdomen. No guarding, rebound, or rigidity. Normal bowel sounds are audible. No tenderness on palpation of McBurney's point. Negative De Jesus sign. Extremities: No clubbing, cyanosis, or edema. 2+ pulses in all 4 extremities. No extremity pain on palpation. The patient has full range of motion without pain of her extremities. The patient has no erythema or ecchymosis. No edema noted. No crepitus or step-off. No shortening or rotation of her extremities. Back: No spinous process tenderness to palpation. No step-off or crepitus. No erythema or ecchymosis. No costovertebral angle tenderness to palpation. Neurologic Exam: Cranial nerves 2-12 were intact on exam. Strength is 5/5 in all 4 extremities. No sensory deficits noted. Skin Exam: No rash noted. Intact skin that is warm and dry. Data Data Last Documented VS Vital Signs Date Time Temp Pulse Resp B/P (MAP) Pulse Ox O2 Delivery O2 Flow Rate FiO2 02/20/18 23:22 02/20/18 21:52 69 16 72 16 77 16 02/20/18 18:42 98 Room Air 02/20/18 16:30 97.8 Orders Orders Electrocardiogram (02/20/18 17:27) Complete Blood Count With Diff (02/20/18:) Comprehensive Metabolic Panel (02/20/18 17:) Ckmb (Isoenzyme) Profile (02/20/18:) Troponin I (02/20/18) Urinalysis - C+S If Indicated (02/20/18:) Magnesium (Mg) (02/20/18 17:) Thyroid Stimulating Hormone (02/20/18:) Chest, Single Ap (02/20/18:) Ct Brain W/O Iv Contrast(Rout) (02/20/18:) Iv Access Insert/Monitor (02/20/18:) Ecg Monitoring (02/20/18:) Oximetry (02/20/18) Orthostatic Vital Signs (02/20/18:) Ct Cerv Spine W/O Contrast (02/20/18 ) Acetaminophen (Tylenol) (02/20/18 20:15) Sodium Chlor 0.9% 250 Ml Inj (Ns 250 Ml (02/20/18 20:15) Oral Rehydration (02/20/18 20:01) Sodium Chlorid 0.9% 500 Ml Inj (Ns 500 M (02/20/18 20:45) Diet As Tolerated (02/20/18 20:52) Diet Regular Basic (02/20/18 Dinner) Labs Laboratory Tests Test 02/20/18 18:14 02/20/18 18:50 02/20/18 19:15 Blood Urea Nitrogen 10 MG/DL Creatinine 0.72 MG/DL Random Glucose 96 MG/DL Total Protein 6.2 GM/DL Albumin 3.1 GM/DL Calcium Level 8.1 MG/DL Magnesium Level 2.0 MG/DL Alkaline Phosphatase 67 U/L Aspartate Amino Transf (AST/SGOT) 21 U/L Alanine Aminotransferase (ALT/SGPT) 27 U/L Total Bilirubin 0.2 MG/DL Sodium Level 139 MEQ/L Potassium Level 4.1 MEQ/L Chloride Level 106 MEQ/L Carbon Dioxide Level 22.1 MEQ/L Anion Gap 11 MEQ/L Estimat Glomerular Filtration Rate 77 ML/MIN Total Creatine Kinase 51 U/L Troponin I LESS THAN 0.02 NG/ML Thyroid Stimulating Hormone 3rd Gen 3.480 uIU/ML Urine Color YELLOW Urine Turbidity CLEAR Urine pH 7.0 Urine Specific [place] 1.011 Urine Protein NEG mg/dL Urine Glucose (UA) NEG mg/dL Urine Ketones NEG mg/dL Urine Occult Blood NEG Urine Nitrite NEG Urine Bilirubin NEG Urine Urobilinogen LESS THAN 2.0 MG/DL Urine Leukocyte Esterase NEG Urine RBC 1 /hpf Urine WBC LESS THAN 1 /hpf Urine Squamous Epithelial Cells <1 /hpf Urine Mucus FEW /lpf Microscopic Urinalysis Comment CULT NOT INDICATED White Blood Count 7.0 TH/MM3 Red Blood Count 3.99 MIL/MM3 Hemoglobin 11.6 GM/DL Hematocrit 34.9 % Mean Corpuscular Volume 87.5 FL Mean Corpuscular Hemoglobin 29.2 PG Mean Corpuscular Hemoglobin Concent 33.4 % Red Cell Distribution Width 14.1 % Platelet Count 297 TH/MM3 Mean Platelet Volume 7.9 FL Neutrophils (%) (Auto) 71.2 % Lymphocytes (%) (Auto) 21.8 % Monocytes (%) (Auto) 6.5 % Eosinophils (%) (Auto) 0.1 % Basophils (%) (Auto) 0.4 % Neutrophils # (Auto) 5.0 TH/MM3 Lymphocytes # (Auto) 1.5 TH/MM3 Monocytes # (Auto) 0.5 TH/MM3 Eosinophils # (Auto) 0.0 TH/MM3 Basophils # (Auto) 0.0 TH/MM3 CBC Comment DIFF FINAL Differential Comment [facility] Medical Record Reviewed: Yes Supervised Visit with THERON: Yes Narrative Course During the course of the patient's emergency department visit, the patient's history, examination, and differential diagnosis were reviewed with the patient. The patient was placed on a cardiac catheterization technician with oximetry and frequent blood pressure monitoring. The patient had IV access obtained and blood work sent for analysis. The patient was initially seen by Jer, the physician advertising assistant. Please see his complete history and physical. The patient's case was checked out to me when the patient moved to a medical pod. The patient has a history of an unwitnessed fall. The patient on my arrival to the room is awake and alert. She has a history of dementia. She is oriented to person, however not place, time, or situation. She does report having a headache over her forehead. She is requesting Tylenol. She is also requesting to eat something. Orthostatic vital signs were ordered. When the patient was supine the patient's blood pressure was 123/59, standing the patient's blood pressure dropped to 100/63 consistent with orthostasis. The patient will be given a fluid bolus. The patient was initially provided normal saline 250 mL bolus 1. Acetaminophen 650 p.o. 1. The patient's laboratory studies were reviewed and remarkable for a white count of 7, hemoglobin 11.6, platelets 297 with 71.2 neutrophils. CMP is remarkable for GFR of 77, calcium 8.1, cardiac enzymes within normal limits, TSH 3.48, urinalysis is within normal limits Radiology studies were reviewed and remarkable for Last Impressions Head CT 02/20/181726 Signed Impressions: CONCLUSION: Chronic small vessel ischemic and atrophic changes. Chest X-Ray 02/20/181726 Signed Impressions: CONCLUSION: No acute cardiopulmonary disease. Cervical Spine CT 02/20/18 0000 Signed Impressions: CONCLUSION: Moderate neural foraminal compromise left C3-4. The patient was given a second normal saline 500 mL bolus. The patient's orthostatic vital signs will be reassessed. The patient is requesting food and will be given something to eat. Anticipate that the patient will be able to be discharged home. The patient's repeat orthostatic vital signs were negative. The patient tolerated the meal well. The patient was reassessed and steady on her feet. The patient is resting comfortably and feels better, is alert and in no distress. The patient's results and examination findings were discussed with the patient. The repeat examination is unremarkable and benign. The history, exam, diagnostic testing, and current condition do not suggest any significant pathology to warrant further testing, continued ED treatment, admission, or surgical evaluation at this point. The vital signs have been stable. The patient does not have uncontrollable pain, intractable vomiting, or other significant symptoms. The patient's condition is stable and appropriate for discharge. The patient will pursue further outpatient evaluation with a primary care physician or other designated or consulting physician as indicated in the discharge instructions. The patient is instructed to report back to the emergency department immediately for reexamination in the mean time if she develops any new or worsening signs or symptoms. The patient expressed understanding and was agreeable with this plan. Diagnosis Primary Impression: Fall Qualified Codes: W19.XXXA - Unspecified fall, initial encounter Additional Impression: Orthostasis Referrals: Primary Care Physician 1 day Patient Instructions: Fall Prevention for Older Adults (ED), General Instructions Disposition: 01 DISCHARGE HOME Condition: Stable David,Yaritza D. MD Feb 20, 2018 19:59
[2018-02-20 20:09] LABS: BASOPHIL % 0.4 % (0.0-2.0); EOSINOPHIL % 0.1 % (0.0-4.0); HEMATOCRIT 34.9 % (35.0-46.0); HEMOGLOBIN 11.6 GM/DL (11.6-15.3); LYMPH % 21.8 % (9.0-44.0); LYMPHOCYTE # 1.5 TH/MM3 (1.0-4.8); MEAN CELL VOLUME 87.5 FL (80.0-100.0); MEAN CORPUSCULAR HEMOGLOBIN 29.2 PG (27.0-34.0); MEAN CORPUSCULAR HGB CONC 33.4 % (32.0-36.0); MEAN PLATELET VOLUME 7.9 FL (7.0-11.0); MONO % 6.5 % (0.0-8.0); MONOCYTE # 0.5 TH/MM3 (0-0.9); NEUT % 71.2 % (16.0-70.0); PLATELET COUNT 297 TH/MM3 (150-450); RED BLOOD COUNT 3.99 MIL/MM3 (4.00-5.30); RED CELL DISTRIBUTION WIDTH 14.1 % (11.6-17.2)
[2018-02-20] MEDS ORDERED: SODIUM CHLOR 0.9% 250 ML INJ 250 ML IV ONE (20:15)
[2018-02-20] MEDS ORDERED: ACETAMINOPHEN 325 MG TAB PO ONE (20:15)
[2018-02-20] MEDS ORDERED: SODIUM CHLORID 0.9% 500 ML INJ 500 ML IV ONE (20:45)
--- NOTE | 2018-02-20 21:41 | EKG ---
Date Performed: 02/20/2018 Time Performed: 17:48:37 PTAGE: 82 years EKG: Sinus rhythm WITH FIRST DEGREE AV BLOCK MARKED LEFT AXIS DEVIATION Nonspecific isolated nonspecific ST elevation in lead V2 POSSIBLE RIGHT VENTRICULAR CONDUCTION DELAY MINIMAL VOLTAGE CRITERIA FOR LVH, CONSIDER NOR MAL VARIANT SEPTAL MYOCARDIAL INFARCTION ABNORMAL ECG Compared to prior electrocardiogram, ST elevati on has resolved in lead V2. PREVIOUS TRACING : 05/24/2017 23.48 DOCTOR: Deacon Arciniega Interpretating Date/Time 02/20/2018 21:39:55
[2018-02-20 21:52] VITALS: BP_SYST 108; BP_SYST 114; BP_SYST 116; BP_DIAS 55; BP_DIAS 59; RESP 16
== END 2018-02-20 23:23 | disposition home or self-care (01) ==
LOC: NEPE 15:45
DX: F03.90 Unspecified dementia, unspecified severity, without behavioral disturbance, psychotic disturbance, mood disturbance, and anxiety (principal); I10 Essential (primary) hypertension; R11.0 Nausea; R94.31 Abnormal electrocardiogram [ECG] [EKG]
CPT/HCPCS: 70450; 71045; 72125; 80053; 81001; 82550; 83735; 84443; 84484; 85025; 93005; 99285; J7040; J7050

== ENCOUNTER 2018-06-11 15:38 | Inpatient (IN) ==
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
[2018-06-11 17:21] LABS: Baso # (Auto) 0.1 th/mm3 (0.0-0.2); Baso % (Auto) 1.3 % (0.0-2.0); Eos # (Auto) 0.1 th/mm3 (0.0-0.4); Hemoglobin 13.9 gm/dL (11.6-15.3); Lymph # (Auto) 2.2 th/mm3 (1.0-4.8); Lymph % (Auto) 32.8 % (9.0-44.0); Mean Corpuscular Hemoglobin 29.7 pg (27.0-34.0); Mean Corpuscular Volume 87.4 fL (80.0-100.0); Mean Platelet Volume 7.8 fL (7.0-11.0); Mono # (Auto) 0.7 th/mm3 (0.0-0.9); Mono % (Auto) 11.3 % (0.0-8.0); Neut # (Auto) 3.5 th/mm3 (1.8-7.7); Neut % (Auto) 52.6 % (16.0-70.0); Platelet Count 309 th/mm3 (150-450); Red Blood Count 4.69 mil/mm3 (4.00-5.30); Red Cell Distribution Width 13.4 % (11.6-17.2); White Blood Count 6.6 th/mm3 (4.0-11.0)
[2018-06-11 17:31] LABS: Amphetamine Screen,Urine Neg (Neg); Barbiturate Screen,Urine Neg (Neg); Cannabinoid Screen,Urine Neg (Neg); Cocaine Screen,Urine Neg (Neg); Opiate Screen,Urine Neg (Neg)
[2018-06-11 17:35] LABS: Bacteria,Urine Rare /hpf; Bilirubin,Urine Negative (Negative); Clarity,Urine Hazy (Clear); Color,Urine Yellow (Yellw/Straw); Glucose,Urine (UA) Negative (Negative); Leukocyte Esterase,Urine Moderate (Negative); Mucus,Urine Few /lpf (Occasional); Nitrite,Urine Negative (Negative); Specific Gravity,Urine 1.015 (1.002-1.035); Squamous Epithelial Cell,Urine 3 /hpf (0-5); Transitional Epi Cells,Urine <1 /hpf
[2018-06-11 17:42] LABS: Alanine Aminotransferase 24 U/L (10-53); Albumin 3.4 g/dL (3.4-5.0); Anion Gap 11 meq/L (5-15); Aspartate Aminotransferase 21 U/L (15-37); Blood Urea Nitrogen 14 mg/dL (7-18); Calcium 8.5 mg/dL (8.5-10.1); Carbon Dioxide 23.4 meq/L (21.0-32.0); Chloride 104 meq/L (98-107); Glomerular Filtration Rate 71 mL/min (>89); Glucose,Random 95 mg/dL (74-106); Potassium 4.1 meq/L (3.5-5.1); Sodium 138 meq/L (136-145)
[2018-06-11 17:52] LABS: Alkaline Phosphatase 72 U/L (45-117); Total Protein 7.1 g/dL (6.4-8.2)
[2018-06-11] MEDS ORDERED: Aluminum/Magnesium/Simethacone Susp 30 ML UDC PO PRN (21:57)
[2018-06-12 08:47] LABS: Chol/HDL Ratio 3.11 Ratio; HDL Cholesterol 78.1 mg/dL (40.0-60.0)
[2018-06-12] MEDS ORDERED: Aluminum/Magnesium/Simethacone Susp 30 ML UDC PO PRN (12:00)
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
[2018-06-12 16:46] LABS: Hemoglobin A1c 5.6 % (4.3-6.0)
[2018-06-12] MEDS: Acetaminophen 325 MG Tablet PO PRN (22:04)
[2018-06-13] MEDS: Acetaminophen 325 MG Tablet PO PRN ×3 (01:43→20:36)
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
[2018-06-14] MEDS: Acetaminophen 325 MG Tablet PO PRN ×2 (03:49→21:31)
--- NOTE | 2018-06-14 12:09 | P.PNPSY ---
Subjective Remarks: Patient seen in the day room with nurse Cristina, she is alert calm speaking in low somewhat squeaky voice. Chart reviewed. Patient compliant medication. States she has not spoken to her family in a day or 2. Patient has been no behavior problems with us. She is scheduled for [place] tomorrow patient will be seen by neuropsychology later this afternoon Review of Systems All other systems reviewed negative except as stated in HPI Mental Status Examination Appearance: Appropriate Consciousness: Alert Orientation: Person, Place, Date/Time (Patient thinks his 2015 though it is June 12), Situation Motor Activity: Normal gait Speech: Unremarkable, Other (Patient with hearing difficulties her volume is somewhat loud) Language: Adequate Fund of Knowledge: Adequate Attention and Concentration: Adequate Memory: Impaired Mood: Appropriate Affect: Appropriate, Other (Good range and intensity) Thought Process & Associations: Other (concrete) Thought Content: Appropriate Hallucination Type: None Delusion Type: Paranoid Suicidal Ideation: No Suicidal Plan: No Suicidal Intention: No Homicidal Ideation: No Homicidal Plan: No Homicidal Intention: No Insight: Poor Judgment: Poor Assessment and Plan - Assessment (1) Alzheimer's disease with late onset Code(s): G30.1 - Alzheimer's disease with late onset; F02.80 - Dementia in other diseases classified elsewhere without behavioral disturbance Status: Acute (2) Dementia in other diseases classified elsewhere with behavioral disturbance Code(s): F02.81 - Dementia in other diseases classified elsewhere with behavioral disturbance Status: Acute - Plan Plan: Patient continues somewhat diffusely confused disoriented but no behavior problems will us at this time patient scheduled for [place] tomorrow will be seen by neuropsychology today Justification for Continued Inpatient Stay: At this time patient would decompensate a place to a lower level of care Discharge Planning: To be determined Request Healthcare Surrogate/Guardian Advocate?: No
--- NOTE | 2018-06-14 15:15 | P.TTN ---
- Patient Problems Problems: 1. Discharge planning 2. Medication compliance 3. Knowledge deficit 4. Lack of coping skills - Progress Toward Goals Provider Present: Dr. Gui Ku Provider Input: 06/14/18: Patient will be attending the [place] court on 06/15 Nurse(s) Present: Jessica RN Nurse Input: 06/14/18: Appropropiate with staff and treatment cooperative., Med compliant. No behavioral issues. Psychiatric Counselors Present: Rico Moreno Jr., [facility], Other (Aliyah Littlejohn) Psychiatric Therapist Input: Cooperative, talkative, needs more time, has a place to go, might need placement. Group Spec/RT/OT/ROMERO Present: BENNY Poole Group Spec/RT/OT/ROMERO Input: 06/14/18: Pt attends the group activities. Pt has a difficult time hearing so needs some redirection to stay on task. Pt is pleasant and cooperative. Social with peers. - Documentation Scribe: Lyla Covarrubias Teaching Recipient: Patient
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
--- NOTE | 2018-06-15 12:13 | P.PNPSY ---
Subjective Remarks: Patient seen in [place] today he is continued for 2 weeks. By Tang Banda patient's son to be healthcare surrogate/guardian advocate. Patient continued with her confusion and disorientation. With little insight. We will add Seroquel 25 mg p.o. 3 times daily to regimen Review of Systems All other systems reviewed negative except as stated in HPI Mental Status Examination Appearance: Appropriate Consciousness: Alert Orientation: Person, Place, Date/Time (Patient thinks his 2015 though it is June 12), Situation Motor Activity: Normal gait Speech: Unremarkable, Other (Patient with hearing difficulties her volume is somewhat loud) Language: Adequate Fund of Knowledge: Adequate Attention and Concentration: Adequate Memory: Impaired Mood: Appropriate Affect: Appropriate, Other (Good range and intensity) Thought Process & Associations: Other (concrete) Thought Content: Appropriate Hallucination Type: None Delusion Type: Paranoid Suicidal Ideation: No Suicidal Plan: No Suicidal Intention: No Homicidal Ideation: No Homicidal Plan: No Homicidal Intention: No Insight: Poor Judgment: Poor Assessment and Plan - Assessment (1) Alzheimer's disease with late onset Code(s): G30.1 - Alzheimer's disease with late onset; F02.80 - Dementia in other diseases classified elsewhere without behavioral disturbance Status: Acute (2) Dementia in other diseases classified elsewhere with behavioral disturbance Code(s): F02.81 - Dementia in other diseases classified elsewhere with behavioral disturbance Status: Acute - Plan Plan: Patient [place] case continued times 2 weeks, some to be healthcare surrogate/guardian advocate. C medication adjustments above Justification for Continued Inpatient Stay: At this time patient would decompensate a place to a lower level of care Discharge Planning: Probable return home with family Request Healthcare Surrogate/Guardian Advocate?: No
[2018-06-15] MEDS: QUEtiapine 25 MG Tablet PO SCH ×2 (12:57→19:16)
[2018-06-15] MEDS: Acetaminophen 325 MG Tablet PO PRN (20:26)
[2018-06-16] MEDS: Acetaminophen 325 MG Tablet PO PRN ×2 (04:35→08:43)
[2018-06-16] MEDS: QUEtiapine 25 MG Tablet PO SCH ×3 (08:43→17:30)
--- NOTE | 2018-06-16 12:09 | P.PNPSY ---
Subjective Remarks: Patient seen in her room with Dora and medical student Suha, chart reviewed, patient compliant medications. His second first dose of Seroquel this morning without problem. Patient continues alert pleasant diffusely confused speaking somewhat loudly with a squeaky voice. She is overall quite pleasant and no behavior problems. For now continue treatment Review of Systems All other systems reviewed negative except as stated in HPI Mental Status Examination Appearance: Appropriate Consciousness: Alert Orientation: Person, Place, Date/Time (Patient thinks his 2015 though it is June 12), Situation Motor Activity: Normal gait Speech: Unremarkable, Other (Patient with hearing difficulties her volume is somewhat loud) Language: Adequate Fund of Knowledge: Adequate Attention and Concentration: Adequate Memory: Impaired Mood: Appropriate Affect: Appropriate, Other (Good range and intensity) Thought Process & Associations: Other (concrete) Thought Content: Appropriate Hallucination Type: None Delusion Type: Paranoid Suicidal Ideation: No Suicidal Plan: No Suicidal Intention: No Homicidal Ideation: No Homicidal Plan: No Homicidal Intention: No Insight: Poor Judgment: Poor Assessment and Plan - Assessment (1) Alzheimer's disease with late onset Code(s): G30.1 - Alzheimer's disease with late onset; F02.80 - Dementia in other diseases classified elsewhere without behavioral disturbance Status: Acute (2) Dementia in other diseases classified elsewhere with behavioral disturbance Code(s): F02.81 - Dementia in other diseases classified elsewhere with behavioral disturbance Status: Acute - Plan Plan: Patient continues demented and confused though no behavior problems, she is calm and pleasant, compliant with medication Justification for Continued Inpatient Stay: At this time patient would decompensate a place to a lower level of care Discharge Planning: To be determined Request Healthcare Surrogate/Guardian Advocate?: No
[2018-06-17] MEDS: QUEtiapine 25 MG Tablet PO SCH ×3 (09:43→17:10)
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
[2018-06-18] MEDS: QUEtiapine 25 MG Tablet PO SCH ×3 (09:34→17:23)
[2018-06-18] MEDS: Acetaminophen 325 MG Tablet PO PRN (09:34)
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
[2018-06-19] MEDS: QUEtiapine 25 MG Tablet PO SCH ×3 (09:36→17:43)
--- NOTE | 2018-06-19 12:24 | P.PNPSY ---
Subjective Remarks: Patient seen in day room with medical student Donita. Chart reviewed. Patient compliant medication. Patient continues calm pleasant with a squeaky voice, but no behavior issues will consider discharge tomorrow home with family Review of Systems All other systems reviewed negative except as stated in HPI Mental Status Examination Appearance: Appropriate Consciousness: Alert Orientation: Person, Place, Date/Time (Patient thinks his 2016 though it is June 12), Situation Motor Activity: Normal gait Speech: Unremarkable, Other (Patient with hearing difficulties her volume is somewhat loud) Language: Adequate Fund of Knowledge: Adequate Attention and Concentration: Adequate Memory: Impaired Mood: Appropriate Affect: Appropriate, Other (Good range and intensity) Thought Process & Associations: Other (concrete) Thought Content: Appropriate Hallucination Type: None Delusion Type: Paranoid Suicidal Ideation: No Suicidal Plan: No Suicidal Intention: No Homicidal Ideation: No Homicidal Plan: No Homicidal Intention: No Insight: Poor Judgment: Poor Assessment and Plan - Assessment (1) Alzheimer's disease with late onset Code(s): G30.1 - Alzheimer's disease with late onset; F02.80 - Dementia in other diseases classified elsewhere without behavioral disturbance Status: Acute (2) Dementia in other diseases classified elsewhere with behavioral disturbance Code(s): F02.81 - Dementia in other diseases classified elsewhere with behavioral disturbance Status: Acute - Plan Plan: Patient continues diffusely confused demented the low behavioral problems, compliant medication, for now continue treatment. Could consider discharge tomorrow Justification for Continued Inpatient Stay: Consider discharge tomorrow Discharge Planning: Consider discharge tomorrow Request Healthcare Surrogate/Guardian Advocate?: No
[2018-06-19] MEDS: Acetaminophen 325 MG Tablet PO PRN (20:10)
[2018-06-20] MEDS: QUEtiapine 25 MG Tablet PO SCH ×3 (08:59→17:12)
--- NOTE | 2018-06-20 09:01 | P.TTN ---
- Patient Problems Problems: 1. Discharge planning 2. Medication compliance 3. Knowledge deficit 4. Lack of coping skills - Progress Toward Goals Provider Present: Dr. Gui Ku Provider Input: 06/19: Pt's can return to her son and daughter, still experiences delusions, reality testing noted, pending DC possibly tomorrow. 06/14/18: Patient will be attending the [place] on 06/15 Nurse(s) Present: Jessica RN Nurse Input: 06/14/18: Appropropiate with staff and treatment cooperative., Med compliant. No behavioral issues. Psychiatric Counselors Present: Rico Moreno Jr., [facility], Other (Aliyah Littlejohn) Psychiatric Therapist Input: Cooperative, talkative, needs more time, has a place to go, might need placement. Group Spec/RT/OT/ROMERO Present: BENNY Poole Group Spec/RT/OT/ROMERO Input: 06/19: Pt attends select groups with encouragement and direction, social, pleasant. 06/14/18: Pt attends the group activities. Pt has a difficult time hearing so needs some redirection to stay on task. Pt is pleasant and cooperative. Social with peers. Clinical Coordinator: Aurelia Howell [facility] - Discharge Plan Other 06/19: Pt can return to her son and daughter's house upon DC - Documentation Teaching Recipient: Patient
--- NOTE | 2018-06-20 09:27 | P.PNPSY ---
Subjective Remarks: Patient seen in her room with medical student Rui, chart reviewed, patient compliant medications. Patient continues with a somewhat loud squeaky voice otherwise no behavior problems she is calm cooperative and friendly in fact she was somewhat T with medical student Tavares. For now continue treatment consider discharge to her family by the end of the week Review of Systems All other systems reviewed negative except as stated in HPI Mental Status Examination Appearance: Appropriate Consciousness: Alert Orientation: Person, Place, Date/Time (Patient thinks his 2015 though it is June 12), Situation Motor Activity: Normal gait Speech: Unremarkable, Other (Patient with hearing difficulties her volume is somewhat loud) Language: Adequate Fund of Knowledge: Adequate Attention and Concentration: Adequate Memory: Impaired Mood: Appropriate Affect: Appropriate, Other (Good range and intensity) Thought Process & Associations: Other (concrete) Thought Content: Appropriate Hallucination Type: None Delusion Type: Paranoid Suicidal Ideation: No Suicidal Plan: No Suicidal Intention: No Homicidal Ideation: No Homicidal Plan: No Homicidal Intention: No Insight: Poor Judgment: Poor Assessment and Plan - Assessment (1) Alzheimer's disease with late onset Code(s): G30.1 - Alzheimer's disease with late onset; F02.80 - Dementia in other diseases classified elsewhere without behavioral disturbance Status: Acute (2) Dementia in other diseases classified elsewhere with behavioral disturbance Code(s): F02.81 - Dementia in other diseases classified elsewhere with behavioral disturbance Status: Acute - Plan Plan: Patient continues confused demented the low behavioral problems will us. Compliant medication. For now continue treatment consider discharge plan of the week Justification for Continued Inpatient Stay: At this time patient would decompensate a place to the lower level of care Discharge Planning: To be determined probably home with family Request Healthcare Surrogate/Guardian Advocate?: No
[2018-06-20 17:55] VITALS: RESP 16
[2018-06-20] MEDS: Acetaminophen 325 MG Tablet PO PRN (20:16)
[2018-06-21 06:27] VITALS: BP 139/67; PULSE 65; TEMP 98.6; O2SAT 94
[2018-06-21] MEDS: QUEtiapine 25 MG Tablet PO SCH ×2 (08:37→12:02)
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
== END 2018-06-21 13:45 | disposition home or self-care (01) ==
LOC: NEPD 15:38 → NEDA 20:21 → H250 21:31
PROVIDERS: ADMIT Psychiatry & Neurology Psychiatry; ATTEND Psychiatry & Neurology Psychiatry